=== PATIENT | female | born 2000 | race Caucasian/White ===

== ENCOUNTER → 2020-05-02 | Outpatient (CLI) | payer OTHER ==
[2020-05-02 16:56] LABS: THYROGLOBULIN ANTIBODY < 15.0 U/ML (<60.0)
[2020-05-07 09:51] LABS: THYROID PEROXIDASE ANTIBODY > 1300.0 U/ML (<60.0)
== END ==
LOC: M LAB 15:19
PROVIDERS: ATTEND Nurse Practitioner Family
DX: E03.9 Hypothyroidism, unspecified (principal)

== ENCOUNTER → 2020-07-19 | Outpatient (CLI) | payer OTHER ==
[2020-07-19 17:04] LABS: FREE T4 0.66 NG/DL (0.76-1.46)
== END ==
LOC: M LAB 16:08
DX: E06.3 Autoimmune thyroiditis (principal)

== ENCOUNTER → 2020-09-19 | Outpatient (CLI) | payer OTHER ==
[2020-09-19 15:24] LABS: FREE T4 1.05 NG/DL (0.76-1.46); THYROID STIMULATING HORMONE 5.92 uIU/ML (0.358-3.740)
== END ==
LOC: M LAB 14:32
PROVIDERS: ATTEND Nurse Practitioner Family
DX: E06.3 Autoimmune thyroiditis (principal)

== ENCOUNTER → 2020-11-23 | Outpatient (CLI) | payer OTHER | LOC: M LAB 15:10 | PROVIDERS: ATTEND Internal Medicine Endocrinology, Diabetes & Metabolism | DX: E06.3 Autoimmune thyroiditis (principal) ==